=== PATIENT | female | born 1975 | race Caucasian/White ===

== ENCOUNTER 2019-05-02 10:54 | Emergency (ER) | payer OTHER ==
[~2019-05-02] VITALS: Ht 157.5 cm; Wt 82.9 kg
[~2019-05-02 10:54] MED LIST: ACET500C5 PO; AMOX500C2 PO; POLY10DR19 LEFT EYE
[2019-05-02 10:57] VITALS: BP 156/83; PULSE 75; RESP 18; Ht 157.5 cm; Wt 82.9 kg
--- NOTE | 2019-05-02 11:50 | ERD ---
ER Documentation Chief Complaint Chief Complaint bilateral eye pain & itching an dhead pain x2 days HPI 44-year-old female presented to ED for eye discomfort and head pain x2 days. Patient states the symptoms have been worsening over the last 2 days she states that she has some eye discharge that is worse in the morning. Patient states she has had pain on the left side. Patient denies fever chills night sweats. Patient states she does not have a cough. Patient's rates the pain an 8 out of 10 and says nothing has been helping. Patient denies any past medical history. Patient is currently not taking any medications and denies any allergies to medications. ROS All systems reviewed and are negative except as per history of present illness. Medications Home Meds Active Scripts Acetaminophen* (Tylophen*) 500 Mg Capsule, 1 CAP PO Q6H PRN for PAIN AND OR ELEVATED TEMP, #20 CAP Prov:ÓSCAR DISLA PA-C 05/02/19 Polymyxin B Sulfate-TMP* (Polymyxin B-TMP Eye Drops*) 10 Ml Drops, 1 DROP LEFT EYE QID for 7 Days, EA Prov:ÓSCAR DISLA PA-C 05/02/19 Amoxicillin* (Amoxicillin*) 500 Mg Cap, 500 MG PO TID for 7 Days, CAP Prov:ÓCSAR DISLA PA-C 05/02/19 Allergies Allergies: Coded Allergies: No Known Allergy (Unverified , 05/02/19) PMhx/Soc Medical and Surgical Hx: pt denies Medical Hx, pt denies Surgical Hx Hx Alcohol Use: No Hx Substance Use: No Hx Tobacco Use: No Smoking Status: Never smoker FmHx Family History: No diabetes, No coronary disease, No other Physical Exam Vitals Vital Signs Date Temp Pulse Resp B/P (MAP) Pulse Ox O2 O2 Flow FiO2 Time Delivery Rate 05/02/19 98.3 75 18 156/83 100 10:57 (107) Physical Exam GENERAL: Moderate distress HEENT: Pupils equal round reactive to light. Left eye is erythematous and appears irritated from the patient rubbing it. Patient has erythematous bulging left tympanic membrane. NECK: C-spine is soft and supple. There is no meningismus. There is no cervical lymphadenopathy. CHEST: Clear to auscultation bilaterally. There are no rales, wheezes or rhonchi. HEART: Regular rate and rhythm. No murmurs, clicks, rubs or gallops. Procedures/MDM ED course: The patient was stable throughout the ED course. The patient and/or family informed of laboratory and diagnostic imaging results throughout the ED course. Medical decision makin-year-old female presented to ED for eye discomfort and head pain x2 days. Physical exam revealed an erythematous left tympanic membrane and patient has erythematous left eye that appears irritated from her rubbing it. Patient reports the symptoms are worse in the morning and crusting on the eyes. Patient is afebrile with vitals stable. Patient's lungs are clear bilateral. Patient has no neck stiffness and physical exam revealed the patient can touch her chin to her chest without difficulty turning her left head left to right without difficulty. Patient's pupils were equal round react to light there was no fixed pupil. The patient had no pain to palpation to the mastoid process. At this time the patient's symptoms are most consistent with acute otitis media and bacterial conjunctivitis. The patient will be treated outpatient with follow-up care primary care provider in 1 to 2 days. Advised patient if the symptoms worsen to return to ED immediately. At this time I have low suspicion for mastoiditis, meningitis, acute closure glaucoma. The patient is in agreement to the treatment plan and all questions were answered upon discharge Prescription for home: Polymycin eyedrops Amoxicillin Acetaminophen I have discussed with the patient proper use and common side effects to expert with the medication . I advised the patient/family to speak with the pharmacist dispensing the medication to be advised of any potential drug interactions with other medication or supplements they may be taking. Discharge: At this time, patient is stable for discharge and outpatient management. I have instructed the patient to follow-up with his\her primary care physician in 1 to 2 days. I have discussed with the patient the possibility of needing to see a specialist for further work-up and imaging studies if symptoms persist. I have instructed the patient to promptly return to the ER for any new or worsening symptoms including increased pain, fever, nausea, vomiting, weakness or LOC. The patient and\or family expressed understanding of and agreement with this plan. All questions were answered. Home care instructions were provided. Disclaimer: Inadvertent spelling and grammatical errors are likely due to EHR\dictation software use and do not reflect on the overall quality of patient care. Also, please note that the electronic time recorded on the note does not necessarily reflect the actual time of the patient encounter. Departure Diagnosis: Primary Impression: Acute otitis media Otitis media type: suppurative Laterality: left Recurrence: non- recurrent Spontaneous tympanic membrane rupture: without spontaneous rupture Qualified Codes: H66.002 - Acute suppurative otitis media without spontaneous rupture of ear drum, left ear Additional Impression: Bacterial conjunctivitis of left eye Condition: Stable Patient Instructions: Conjunctivitis, Bacterial, Acute Otitis Media With Infection [Infant] Referrals: REPLACED BY [facility] YOU HAVE RECEIVED A MEDICAL SCREENING EXAM AND THE RESULTS INDICATE THAT YOU DO NOT HAVE A CONDITION THAT REQUIRES URGENT TREATMENT IN THE EMERGENCY DEPARTMENT. FURTHER EVALUATION AND TREATMENT OF YOUR CONDITION CAN WAIT UNTIL YOU ARE SEEN IN YOUR DOCTORS OFFICE WITHIN THE NEXT 1-2 DAYS. IT IS YOUR RESPONSIBILITY TO MAKE AN APPOINTMENT FOR FOLOW-UP CARE. IF YOU HAVE A PRIMARY DOCTOR --you should call your primary doctor and schedule an appointment IF YOU DO NOT HAVE A PRIMARY DOCTOR YOU CAN CALL OUR PHYSICIAN REFERRAL HOTLINE AT IF YOU CAN NOT AFFORD TO SEE A PHYSICIAN YOU CAN CHOSE FROM THE FOLLOWING [facility] [address] [facility]. [facility] [address] [facility] [facility] [address] [facility] [facility] [address] [facility]. [facility] [address] [facility]. [facility]. [address] [facility]. [facility] YOU HAVE RECEIVED A MEDICAL SCREENING EXAM AND THE RESULTS INDICATE THAT YOU DO NOT HAVE A CONDITION THAT REQUIRES URGENT TREATMENT IN THE EMERGENCY DEPARTMENT. FURTHER EVALUATION AND TREATMENT OF YOUR CONDITION CAN WAIT UNTIL YOU ARE SEEN IN YOUR DOCTORS OFFICE WITHIN THE NEXT 1-2 DAYS. IT IS YOUR RESPONSIBILITY TO MAKE AN APPOINTMENT FOR FOLOW-UP CARE. IF YOU HAVE A PRIMARY DOCTOR --you should call your primary doctor and schedule and appointment IF YOU DO NOT HAVE A PRIMARY DOCTOR YOU CAN CALL OUR PHYSICIAN REFERRAL HOTLINE AT . IF YOU CAN NOT AFFORD TO SEE A PHYSICIAN YOU CAN CHOSE FROM THE FOLLOWING [facility]: [facility] [address] [place] [address] [facility] [address] [place] [address] [facility] [address] [place] [address] Additional Instructions: Llame al doctor MAANA y edel ritu ISA PARA DENTRO DE 1-2 ROGERS.Dgale a la secretaria que nosotros le instruimos hacer esta isa.Avise o llame si boggs condicin se empeora antes de la isa. Regresa aqui si peor o no mejor. ÓSCAR DISLA PA-C May 02, 2019 11:49
== END 2019-05-02 12:17 | disposition home or self-care (01) ==
LOC: FTE 10:54
DX: H10.9 Unspecified conjunctivitis (principal); H66.002 Acute suppurative otitis media without spontaneous rupture of ear drum, left ear
CPT/HCPCS: 99283